=== PATIENT | male | born 1980 | race Two or more races ===

== ENCOUNTER → 2017-09-16 | Outpatient (CLI) | payer OTHER ==
--- NOTE | 2017-09-16 16:50 | CONS ---
CONSULTATION REASON FOR CONSULTATION: Consultation note for sleep apnea. HISTORY OF PRESENT ILLNESS: 36-year-old male patient coming in for sleep apnea evaluation as required for DOC medical card. The patient was undergoing routine health evaluation and screening and he was suspected of obstructive sleep apnea based on his anatomic features. The patient is morbidly obese with a BMI of 45.0 without any recent weight gain. He denies having any snoring. He denies having any witnessed apneas. No nocturia. No excessive daytime fatigue or sleepiness during the day. Denies grinding of the teeth. Denies having any dry mouth in the morning. Denies having any restlessness in lower extremities. He goes to bed at 11:00 p.m. and wakes up 7:45 am in the morning. He is quite alert and awake during the day. [place] score is a 0. No falling asleep while driving. No falling asleep while doing day-to-day activities. 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 PAST MEDICAL HISTORY: Obesity. PAST SURGICAL HISTORY: Surgical history is none. DRUG ALLERGIES: None. He is allergic to DUST AND POLLEN. OUTPATIENT MEDICATION: Includes Claritin p.r.n. SOCIAL HISTORY: Nonsmoker. No history of alcohol. No history of IV drugs. He is a and occupation history is he works at [employer] in [place]. FAMILY HISTORY: Negative for sleep apnea. Patient is and has one child. REVIEW OF SYSTEMS: 12-point review of system was done. All of the positive findings are mentioned above in the history of present illness. Otherwise is negative. PHYSICAL EXAMINATION: BP is 125/89, pulse 84, respirations 16, temp 97.8, saturation 96% on room air. Weight is 316 pounds. Height is 5 feet 10 inches and BMI is 45. Neck size 17 inch. General appearance calm comfortable. HEENT short neck. Crowding of posterior pharynx. There is no goiter or neck masses. Mallampati class IV. LUNGS: Clear to auscultation. HEART: Sounds regular rate and rhythm. Normal S1, S2. No S3. No murmurs. ABDOMEN: Soft, nontender. No organomegaly. EXTREMITIES: No edema. No cyanosis or clubbing. Skin negative for any wounds or ulcerations or cellulitis. Neuro alert and oriented times three. There is no focal neurological deficit. IMPRESSION: 1. Obstructive sleep apnea clinically suspected under investigation. 2. Obesity with a BMI of 45. PLAN: The patient has no major hypersomnia or sleepiness. Denies snoring. Denies having any witnessed apneas. Based on his anatomic features with Mallampati class 4 and elevated body mass index, the patient will have a screening study to make sure there was no obstructive sleep apnea. I have ordered a home sleep study and if the results are negative the patient will be cleared to undergo his DOC certification. MMODL / IJN: [id number] /
== END ==
LOC: SLEEP 13:44
PROVIDERS: ATTEND Internal Medicine
DX: E66.9 Obesity, unspecified (principal); Z68.42 Body mass index [BMI] 45.0-49.9, adult; Z79.899 Other long term (current) drug therapy

== ENCOUNTER → 2021-09-18 | Outpatient (CLI) | payer OTHER ==
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
== END ==
LOC: SLEEP 14:29
PROVIDERS: ATTEND Internal Medicine Critical Care Medicine
DX: G47.33 Obstructive sleep apnea (adult) (pediatric) (principal); E66.9 Obesity, unspecified; Z99.89 Dependence on other enabling machines and devices; Z68.43 Body mass index [BMI] 50.0-59.9, adult; Z86.59 Personal history of other mental and behavioral disorders
CPT/HCPCS: 99202